=== PATIENT | female | born 1960 | race Caucasian/White ===

== ENCOUNTER 2016-10-17 08:59 | Emergency (ER) | payer OTHER ==
[~2016-10-17] VITALS: Ht 157.5 cm; Wt 58.5 kg
[2016-10-17 10:55] LABS: microscopic required? NO
[2016-10-17 11:11] LABS: UA SPECIFIC GRAVITY >=1.030 (1.005-1.035); urine erythrocyte NEGATIVE (NEGATIVE)
[2016-10-17 11:57] VITALS: BP 142/79
== END 2016-10-17 12:25 | disposition home or self-care (01) ==
LOC: ED 08:59
PROVIDERS: Emergency Medicine
DX: S50.12XA Contusion of left forearm, initial encounter (principal); S20.212A Contusion of left front wall of thorax, initial encounter; S30.0XXA Contusion of lower back and pelvis, initial encounter; M54.9 Dorsalgia, unspecified; W17.2XXA Fall into hole, initial encounter; Y93.89 Activity, other specified; Y92.89 Other specified places as the place of occurrence of the external cause; Y99.0 Civilian activity done for income or pay
CPT/HCPCS: 90715

== ENCOUNTER 2016-10-25 11:15 | Emergency (ER) | payer OTHER ==
[~2016-10-25] VITALS: Ht 157.5 cm; Wt 56.7 kg
[2016-10-25 12:06] LABS: BASOPHIL % 0.4 % (0-2); PLATELET COUNT 242 x10^3mcL (130-400)
[2016-10-25 12:47] LABS: CARBON DIOXIDE 33.2 mmol/L (21-32); CHLORIDE SERUM 102 mmol/L (98-107); CREATININE SERUM 0.8 mg/dL (0.6-1.0); GFR1 > 60 mL/min; GLUCOSE SERUM 96 mg/dL (74-106); POTASSIUM SERUM 5.1 mmol/L (3.5-5.1); SODIUM SERUM 140 mmol/L (136-145)
[2016-10-25 12:51] LABS: ALBUMIN 4.1 g/dL (3.4-5.0); ALKALINE PHOSPHATASE 94 U/L (46-116); ALT/SGPT 27 U/L (14-59); AST/SGOT 22 U/L (15-37); BILIRUBIN TOTAL 0.49 mg/dL (0.20-1.00); LIPASE 111 IU/L (73-393); TOTAL PROTEIN, SERUM 7.8 g/dL (6.4-8.2)
[2016-10-25 12:56] LABS: AMPHETAMINE QUAL UR NONE DETECTED (NEG <=1000)
[2016-10-25 15:28] VITALS: BP 134/84
== END 2016-10-25 15:28 | disposition home or self-care (01) ==
LOC: ED 11:15
PROVIDERS: Emergency Medicine
DX: S32.018A Other fracture of first lumbar vertebra, initial encounter for closed fracture (principal); S32.028A Other fracture of second lumbar vertebra, initial encounter for closed fracture; S32.038A Other fracture of third lumbar vertebra, initial encounter for closed fracture; R07.9 Chest pain, unspecified; R10.9 Unspecified abdominal pain; W17.89XA Other fall from one level to another, initial encounter; Y93.89 Activity, other specified; Y99.8 Other external cause status; Y92.89 Other specified places as the place of occurrence of the external cause
CPT/HCPCS: 80307; 83880; J2270; J2405; Q0092; Q9967

== ENCOUNTER 2017-02-25 11:50 | Emergency (ER) | payer OTHER ==
[~2017-02-25] VITALS: Ht 157.5 cm; Wt 64.0 kg
[2017-02-25 11:57] VITALS: BP 164/99
== END 2017-02-25 13:22 | disposition left against medical advice (07) ==
LOC: ED 11:50
DX: Z53.21 Procedure and treatment not carried out due to patient leaving prior to being seen by health care provider (principal)

== ENCOUNTER 2018-04-21 09:55 | Emergency (ER) | payer OTHER ==
[~2018-04-21] VITALS: Ht 160 cm; Wt 61.2 kg
[2018-04-21 10:06] VITALS: Ht 160 cm; Wt 61.2 kg
[2018-04-21 12:23] VITALS: BP 132/78
== END 2018-04-21 12:23 | disposition home or self-care (01) ==
LOC: ED 09:55
DX: N64.4 Mastodynia (principal); G89.29 Other chronic pain; Z98.890 Other specified postprocedural states

== ENCOUNTER 2018-07-16 10:47 | Emergency (ER) | payer OTHER ==
[~2018-07-16] VITALS: Ht 167.6 cm; Wt 64.9 kg
[2018-07-16 10:53] VITALS: Ht 167.6 cm; Wt 64.9 kg
[2018-07-16 12:58] VITALS: BP 154/99
== END 2018-07-16 12:58 | disposition home or self-care (01) ==
LOC: ED 10:47
DX: G44.209 Tension-type headache, unspecified, not intractable (principal); M62.830 Muscle spasm of back; G89.29 Other chronic pain; Z98.890 Other specified postprocedural states
CPT/HCPCS: J1885; J2001

== ENCOUNTER 2018-10-22 09:47 | Emergency (ER) | payer OTHER ==
[~2018-10-22] VITALS: Ht 157.5 cm; Wt 66.2 kg
[2018-10-22 10:00] VITALS: Ht 157.5 cm; Wt 66.2 kg
[2018-10-22 11:55] VITALS: BP 156/89
== END 2018-10-22 12:08 | disposition home or self-care (01) ==
LOC: ED 09:47
DX: M26.601 Right temporomandibular joint disorder, unspecified (principal); G89.29 Other chronic pain; M54.2 Cervicalgia; M54.9 Dorsalgia, unspecified
CPT/HCPCS: J1885

== ENCOUNTER 2019-01-22 18:35 | Emergency (ER) | payer OTHER ==
[~2019-01-22] VITALS: Ht 157.5 cm; Wt 66.2 kg
[2019-01-22 18:42] VITALS: Ht 157.5 cm; Wt 66.2 kg
[2019-01-22 20:30] VITALS: BP 143/70
== END 2019-01-22 20:30 | disposition home or self-care (01) ==
LOC: ED 18:35
DX: G89.29 Other chronic pain (principal); M25.512 Pain in left shoulder; M54.2 Cervicalgia; M79.602 Pain in left arm; R11.0 Nausea
CPT/HCPCS: 20552; J1885; J2001